=== PATIENT | female | born 1995 | race Caucasian/White ===

== ENCOUNTER 2025-03-31 06:26 | Inpatient (IN) ==
[2025-03-31] MEDS ORDERED: REGLAN INJ 10 MG VIAL IVP PRN ×2 (06:28→19:10)
[2025-03-31] MEDS ORDERED: PITOCIN IVP ONE (06:28)
[2025-03-31] MEDS ORDERED: NUBAIN INJ 10 MG AMP IVP PRN (06:28)
[2025-03-31] MEDS: D5 1/2 NS 1,000 ML 1,000 ML IV SCH (06:48)
--- NOTE | 2025-03-31 07:13 | DR.OB ---
OB QUICK NOTE Assessment/Plan (1) Encounter for induction of labor: Assessment/Plan: L&D 03/31/25 at 7:00am S-No complaint. O-Afebrile,VSS [id number]=[id number] with good LTV, +accel, no decel. CTX=mild uterine irritability CVX=1cm/50%/-1/VTX AROM with clear fluid. IUPC and FSE placed. A-IUP at 38 2/7 week for induction PIH P-Begin pitocin induction F/U labs and preeclamptic labs Anticipate (2) -induced hypertension in third trimester:
[2025-03-31 07:21] LABS: BLOOD/HEMOGLOBIN,URINE NEGATIVE (NEGATIVE); LEUKOCYTE ESTERASE ,URINE NEGATIVE (NEGATIVE); NITRITES,URINE NEGATIVE (NEGATIVE)
[2025-03-31] MEDS: OXYTOCIN 20 UNIT/1,000 ML-NS 20 UNIT/1,000 ML PLAST..BAG IV PRN (07:28)
[2025-03-31 07:32] LABS: MEAN PLATELET VOLUME 9.8 fL (7.4-11.0); RED CELL DISTRIBUTION WIDTH 13.8 % (11.6-16.5)
[2025-03-31 07:33] LABS: CREATININE 0.67 mg/dL (0.55-1.02); eGFR NON BLACK RACES > 60 (>60)
[2025-03-31 07:34] LABS: INR 0.90 (0.8-1.3)
[2025-03-31 07:38] LABS: APPEARANCE,URINE CLEAR (CLEAR)
[2025-03-31 07:39] LABS: LACTATE DEHYDROGENASE 180.0 Units/L (81-234)
[2025-03-31 07:45] LABS: COR CA(FOR HYPOALB) 9.4 mg/dL (8.5-10.1)
[2025-03-31] MEDS: LR 1,000 ML IV 1,000 ML IV ONE (09:10)
[2025-03-31] MEDS: FENTANYL VIAL INJ 100 mcg ONE (10:35)
[2025-03-31] MEDS: NAROPIN EPIDURAL 0.2% 100 ML ONE (10:36)
[2025-03-31] MEDS: XYLOCAINE 1 % (PLAIN) ONE (10:45)
--- NOTE | 2025-03-31 12:21 | DR.OB ---
OB QUICK NOTE Assessment/Plan (1) Encounter for induction of labor: Assessment/Plan: L&D 03/31/25 at 11:55am Pitocin=14mu/min. S-No complaint. s/p epidural. O-Afebrile,VSS [id number] with good LTV, +accel, no decel. CTX=q 1 1/2 to 2 min., about 50-75mmHg CVX=2cm/75%/-1/VTX FSE replaced. A-IUP at 38 2/7 weeks for induction PIH P-Continue pitocin inductiion Anticipate (2) -induced hypertension in third trimester:
[2025-03-31] MEDS ORDERED: D5 1/2 NS 1,000 ML 1,000 ML IV ONE (15:56)
[2025-03-31] MEDS: ZOFRAN INJ 4 MG VIAL IVP PRN (16:28)
[2025-03-31] MEDS ORDERED: DIPRIVAN VIAL 20 ML ONE (16:58)
[2025-03-31] MEDS ORDERED: OFIRMEV IV 1000 MG VIAL 1,000 MG/100 ML VIAL IV ONE (16:58)
[2025-03-31] MEDS ORDERED: TORADOL 30 MG VIAL ONE ×2 (16:58→23:29)
[2025-03-31] MEDS: LR 1,000 ML IV 2,000 ML IV PRN (17:05)
[2025-03-31] MEDS: REGLAN INJ 10 MG VIAL IVP PRN (17:05)
[2025-03-31] MEDS: PEPCID 20 MG VIAL IVP PRN (17:05)
--- NOTE | 2025-03-31 17:05 | DR.OB ---
OB QUICK NOTE Assessment/Plan (1) Encounter for induction of labor: Assessment/Plan: L&D 03/31/25 at 5:00pm Pitocin=12mu/min. S-No complaint. O-Afebrile,VSS SNJ=600 with good LTV, +accel, repetitive variables with many severe. CTX=q 1-2 minutes, about 50-75mmHg CVX=3cm/75%/-1/VTX with caput forming. CVX very tight, not stretchy. No change in 4 hours. A-IUP at 38 2/7 weeks with failure to dilate Non-reassuring heart tones distant from delivery P-To C/S (2) -induced hypertension in third trimester:
[2025-03-31] MEDS: NS 100 ML IV 100 ML ONE (17:10)
[2025-03-31] MEDS: ANCEF VIAL 1 GRAM ONE (17:10)
[2025-03-31] MEDS: ANCEF VIAL 1 GRAM IV PRN (17:15)
[2025-03-31] MEDS: VERSED IVP PRN (17:45)
[2025-03-31] MEDS ORDERED: XYLOCAINE 2 % (PLAIN) PRN (17:45)
[2025-03-31] MEDS: TORADOL 30 MG VIAL IVP PRN (17:57)
[2025-03-31] MEDS: DIPRIVAN VIAL 180 ML IVP PRN (17:57)
[2025-03-31] MEDS: KETAMINE HCL IV PRN (18:09)
[2025-03-31] MEDS: OFIRMEV IV 1000 MG VIAL 1,000 MG/100 ML VIAL IV PRN (18:12)
[2025-03-31] MEDS ORDERED: PITOCIN IVP PRN (18:13)
[2025-03-31] MEDS ORDERED: BENADRYL INJ 50 MG VIAL IVP PRN ×2 (18:38→19:10)
[2025-03-31] MEDS ORDERED: ZOFRAN INJ 4 MG VIAL IVP PRN (18:38)
[2025-03-31] MEDS ORDERED: DILAUDID INJ IVP PRN (18:38)
[2025-03-31] MEDS ORDERED: BARHEMSYS INJ IVP PRN (18:38)
[2025-03-31] MEDS ORDERED: ADACEL or BOOSTRIX TDaP VACCINE IM ONE (19:10)
[2025-03-31] MEDS: OXYTOCIN 20 UNIT/1,000 ML-NS 20 UNIT/1,000 ML PLAST..BAG IV SCH (22:30)
[2025-03-31] MEDS: TORADOL 30 MG VIAL IVP SCH (23:30)
[2025-04-01] MEDS: OFIRMEV IV 1000 MG VIAL 1,000 MG/100 ML VIAL IV SCH (02:17)
[2025-04-01] MEDS: TORADOL 30 MG VIAL IVP SCH (05:25)
[2025-04-01] MEDS: ADACEL or BOOSTRIX TDaP VACCINE IM ONE (05:27)
[2025-04-01] MEDS: PRENATAL PLUS PO SCH (08:08)
[2025-04-01] MEDS: COLACE CAP 100 MG PO SCH (08:08)
[2025-04-01] MEDS: LR 1,000 ML IV 1,000 ML IV ONE (08:17)
[2025-04-01] MEDS: LIDOCAINE 2%-EPI 1:200,000 ONE (08:17)
[2025-04-01] MEDS: ZOFRAN INJ 4 MG VIAL ONE (08:17)
[2025-04-01] MEDS: REGLAN INJ 10 MG VIAL ONE (08:17)
[2025-04-01] MEDS: PEPCID 20 MG VIAL ONE (08:17)
[2025-04-01] MEDS: BETADINE SOLN ONE (08:17)
[2025-04-01] MEDS: XYLOCAINE 2 % (PLAIN) ONE ×2 (08:34→08:35)
[2025-04-01] MEDS: VERSED ONE (08:38)
[2025-04-01] MEDS: KETAMINE HCL ONE (08:38)
[2025-04-01] MEDS: PITOCIN ONE (09:24)
[2025-04-01] MEDS: TORADOL 15 MG VIAL ONE (09:24)
[2025-04-01] MEDS: PERCOCET TAB 5/325 MG PO PRN (10:42)
[2025-04-01] MEDS: BACTROBAN TOPICAL OINT TOP SCH (13:30)
[2025-04-01] MEDS: ZOFRAN INJ 4 MG VIAL IVP PRN (16:27)
[2025-04-01] MEDS: DILAUDID INJ IVP PRN (17:46)
[2025-04-01] MEDS: MYLICON TAB 80 MG CHEW PO PRN (21:20)
[2025-04-02] MEDS ORDERED: MOTRIN TAB 800 MG PO PRN (02:00)
[2025-04-02 04:09] VITALS: RESP 18; O2SAT 97
[2025-04-02 07:43] VITALS: BP 143/80; PULSE 84; TEMP 99
[2025-04-02] MEDS ORDERED: MAALOX or MYLANTA PO PRN (08:20)
[2025-04-02] MEDS: PEPCID TAB 20 MG PO SCH (08:28)
== END 2025-04-02 09:45 | disposition home or self-care (01) | DRG 788 ==
LOC: LD 06:26 → MERGE 10:29 → MED/SURG 19:04
PROVIDERS: ADMIT Specialist; ATTEND Specialist
DX: Z3A.38 38 weeks gestation of pregnancy; Z01.818 Encounter for other preprocedural examination; Z37.0 Single live birth; O62.0 Primary inadequate contractions; O13.3 Gestational [pregnancy-induced] hypertension without significant proteinuria, third trimester